=== PATIENT | female | born 1980 ===

== ENCOUNTER 2017-05-11 17:21 | Emergency (ER) | payer MEDICAID ==
[2017-05-11 18:08] VITALS: RESP 18
[2017-05-11 18:11] VITALS: BMI 37.0
[2017-05-11] MEDS ORDERED: Sodium Chloride 0.9% 1,000 ML IV STA (18:30)
[2017-05-11 19:22] LABS: URINE BILIRUBIN NEGATIVE (NEGATIVE); URINE BLOOD LARGE (NEGATIVE); URINE GLUCOSE (UA) NEGATIVE (NEGATIVE); URINE LEUKOCYTE ESTERASE NEGATIVE Leu/uL (NEGATIVE); URINE PROTEIN TRACE mg/dL (<30 mg/dL); URINE UROBILINOGEN 0.2 E.U./dL (<1 E.U./dL)
[2017-05-11 19:23] LABS: URINE APPEARANCE CLOUDY (CLEAR); URINE COLOR YELLOW (YELLOW)
[2017-05-11 19:35] LABS: URINE RBC TNTC /hpf (0-2)
[2017-05-11 19:36] LABS: BASO # 0.01 K/mm3 (0.0-2.0); BASO % 0.1 % (0.0-3.0); EOS # 0.1 (0.0-0.7); EOS % 1.2 % (1.5-5.0); GRAN # 5.14 (1.4-6.5); GRAN % 61.6 % (50.0-68.0); HEMOGLOBIN 9.5 g/dL (12.0-16.0); LYMPH # 2.6 (1.2-3.4); LYMPH % 31.5 % (22.0-35.0); MEAN CELL VOLUME 76.8 fl (80.0-105.0); MEAN CORPUSCULAR HEMOGLOBIN 24.7 pg (25.0-35.0); MEAN CORPUSCULAR HGB CONC 32.2 g/dl (31.0-37.0); MEAN PLATELET VOLUME 9.9 fl (7.0-11.0); MONO # 0.5 (0.1-0.6); MONO % 5.6 % (1.0-6.0); RBC 3.84 10^6/uL (3.5-6.1); RED CELL DISTRIBUTION WIDTH 14.6 % (11.5-14.5); WHITE BLOOD COUNT 8.4 10^3/ul (4.5-11.0)
[2017-05-11 19:36] LABS: URINE BACTERIA TRACE (NEG); URINE EPITHELIAL CELLS 0 - 2 /hpf (0-5); URINE WBC 0 - 2 /hpf (0-6)
[2017-05-11 19:39] LABS: INR 1.01 (0.93-1.08); PARTIAL THROMBOPLASTIN TIME 27.6 Seconds (25.1-36.5); PROTHROMBIN TIME 11.5 SECONDS (9.4-12.5)
[2017-05-11 19:42] LABS: ALB/GLOB RATIO 1.1 (1.1-1.8); ALBUMIN 3.7 g/dL (3.0-4.8); ALT/SGPT 26 U/L (7-56); AST/SGOT 25 U/L (14-36); BLOOD UREA NITROGEN 18 mg/dL (7-21); CALCIUM 9.2 mg/dL (8.4-10.5); GFR AFRICAN-AMERICAN > 60; GFR NON-AFRICAN AMERICAN > 60; LIPASE 200 U/L (23-300)
--- NOTE | 2017-05-11 19:50 | ED PDOC ---
Arrival/HPI <Anderson Lay P - Last Filed: 05/12/17 00:26> - General Historian: Patient - History of Present Illness Time/Duration: Other (3 days) Symptom Course: Unchanged Quality: Other Context: Home <Angelica Lucero PA-C - Last Filed: 05/12/17 14:35> - General Chief Complaint: GI Problem Time Seen by Provider: 05/11/17 17:57 - History of Present Illness Narrative History of Present Illness (Text): 05/11/17 19:47 A 36 year old female presents to the emergency department complaining of mid abdominal pain for 3 days. Patient notes associated nausea, vomiting and difficulty tolerating PO intake. Patient denies any fever, chills, diarrhea, chest pain, shortness of breath or any other complaints. Patient reports a history of gastric bypass and spontaneous vaginal delivery to twins, but no other surgeries. (Angelica Lucero PA-C) Past Medical History - Provider Review Nursing Documentation Reviewed: Yes - Infectious Disease Hx of Infectious Diseases: None - Psychiatric Hx Depression: Yes Hx Substance Use: No - Surgical History Hx Gastric Bypass Surgery: Yes - Anesthesia Hx Anesthesia: Yes Hx Anesthesia Reactions: No Hx Malignant Hyperthermia: No <Angelica Lucero PA-C - Last Filed: 05/12/17 14:35> Family/Social History - Physician Review Nursing Documentation Reviewed: Yes Family/Social History: No Known Family HX Smoking Status: Never Smoked Hx Alcohol Use: No Hx Substance Use: No <Angelica Lucero PA-C - Last Filed: 05/12/17 14:35> Allergies/Home Meds <Anderson Lay P - Last Filed: 05/12/17 00:26> <Angelica Lucero PA-C - Last Filed: 05/12/17 14:35> Allergies/Adverse Reactions: Allergies No Known Allergies Allergy (Verified 05/11/17 18:11) Review of Systems - Physician Review All systems were reviewed & negative as marked: Yes - Review of Systems Constitutional: absent: Fevers, Night Sweats Respiratory: absent: SOB Cardiovascular: absent: Chest Pain Gastrointestinal: Abdominal Pain, Nausea, Vomiting, Food Intolerance. absent: Diarrhea <Angelica Lucero PA-C - Last Filed: 05/12/17 14:35> Physical Exam Vital Signs Reviewed: Yes Temperature: Afebrile Blood Pressure: Normal Pulse: Regular Respiratory Rate: Normal Appearance: Positive for: Well-Appearing, Non-Toxic, Uncomfortable Pain Distress: Moderate Mental Status: Positive for: Alert and Oriented X 3 - Systems Exam Head: Present: Atraumatic, Normocephalic Pupils: Present: PERRL Extroacular Muscles: Present: EOMI Conjunctiva: Present: Normal Mouth: Present: Moist Mucous Membranes Neck: Present: Normal Range of Motion Respiratory/Chest: Present: Clear to Auscultation, Good Air Exchange. No: Respiratory Distress, Accessory Muscle Use Cardiovascular: Present: Regular Rate and Rhythm, Normal S1, S2. No: Murmurs Abdomen: Present: Tenderness (Mid abdominal tenderness to palpation), Normal Bowel Sounds. No: Distention, Peritoneal Signs, Rebound, Guarding, Other ( Leach's sign) Back: Present: Normal Inspection Upper Extremity: Present: Normal Inspection. No: Cyanosis, Edema Lower Extremity: Present: Normal Inspection. No: Edema Neurological: Present: GCS=15, CN II-XII Intact, Speech Normal Skin: Present: Warm, Dry, Normal Color. No: Rashes Psychiatric: Present: Alert, Oriented x 3, Normal Insight, Normal Concentration <Angelica Lucero PA-C - Last Filed: 05/12/17 14:35> Vital Signs Temp Pulse Resp BP Pulse Ox 05/11/17 23:57 98.7 F 74 18 120/60 100 05/11/17 22:20 98.6 F 76 18 119/60 99 05/11/17 18:07 98.2 F 86 18 138/78 98 Medical Decision Making Re-evaluation Time: 00:29 Reassessment Condition: Re-examined, Improved - Lab Interpretations I have reviewed the lab results: Yes Interpretation: No clinic. lab abnormalty (mild anemia, patient noted pmh anemia ) <Anderson Lay - Last Filed: 05/12/17 00:26> - Lab Interpretations I have reviewed the lab results: Yes <Angelica Lucero PA-C - Last Filed: 05/12/17 14:35> ED Course and Treatment: 05/12/17 00:26 Patient was endorsed to me by MORAIMA Salazar. Pending CT scan. On reevaluation, patient feels better. Patient denies nausea or vomiting at this time, and abdominal pain has improved. Patient tolerates PO fluids in ED. Abdomen is soft, nt/nd. CT scan was unremarkable. Patient was recommended to f/u with pmd in 1-2 days. Patient was recommended to return to emergency if symptoms worsen. (Anderson Lay) 05/11/17 19:47 Impression: A 36 year old female with mid abdominal pain, nausea and vomiting Plan: -- Abdomen and pelvis CT -- Labs -- Urine culture and Urinalysis -- Pepcid, Zofran and IV fluids -- Reassess and disposition Progress Notes: 05/11/17 21:00 On re-evaluation, patient is laying comfortably in bed. Patient states her pain is under control. On repeat exam, abdomen is soft with mild mid abdominal tenderness. Labs were reviewed, patient noted to be anemic with a hemoglobin of 9.6. Results were discussed with the patient, who reports a history of chronic anemia with iron infusions every 5 months. Patient states her last infusion was approximately 1 year ago and her last blood transfusion was 3 years ago. She notes todays hemoglobin level is consistent with her usual anemia. Patient denies any dark or bloody stools. Case endorsed to MORAIMA Lay, pending CT results. (Nic ANDERSEN,Angelica Sow) - Lab Interpretations Microbiology Results: Microbiology Results 05/11/17 19:00 Urine Urine Culture - Preliminary Gram Positive Cocci Lab Results: 05/11/17 19:20 05/11/17 19:20 Lab Results 05/11/17 19:20: Sodium 139, Potassium 4.5, Chloride 106, Carbon Dioxide 24, Anion Gap 13, BUN 18, Creatinine 0.7, Est GFR ( Amer) > 60, Est GFR (Non- Af Amer) > 60, Random Glucose 93, Calcium 9.2, Total Bilirubin < 0.1 L, AST 25, ALT 26, Alkaline Phosphatase 91, Total Protein 7.0, Albumin 3.7, Globulin 3.4, Albumin/Globulin Ratio 1.1, Lipase 200 05/11/17 19:20: PT 11.5, INR 1.01, APTT 27.6 05/11/17 19:20: WBC 8.4, RBC 3.84, Hgb 9.5 L, Hct 29.5 L, MCV 76.8 L, MCH 24.7 L , MCHC 32.2, RDW 14.6 H, Plt Count 383, MPV 9.9, Gran % 61.6, Lymph % (Auto) 31.5, [place] % (Auto) 5.6, Eos % (Auto) 1.2 L, Baso % (Auto) 0.1, Gran # 5.14, Lymph # (Auto) 2.6, [place] # (Auto) 0.5, Eos # (Auto) 0.1, Baso # (Auto) 0.01 05/11/17 19:00: Urine Color Yellow, Urine Appearance Cloudy, Urine pH 6.0, Ur Specific [place] 1.020, Urine Protein Trace H, Urine Glucose (UA) Negative, Urine Ketones Negative, Urine Blood Large H, Urine Nitrate Negative, Urine Bilirubin Negative, Urine Urobilinogen 0.2, Ur Leukocyte Esterase Negative, Urine RBC Tntc, Urine WBC 0 - 2, Ur Epithelial Cells 0 - 2, Urine Bacteria Trace - RAD Interpretation Narrative RAD Interpretations (Text): 05/12/17 00:29 CT Scan ABD PELVIS PO IV CONTRAST Exam Date: 05/11/17 This imaging exam was performed at [facility] EXAM: CT Abdomen and Pelvis With Intravenous Contrast . FINDINGS: Limitations: Motion artifact - mild. Lung bases: Unremarkable. No mass. No consolidation. ABDOMEN: Liver: Unremarkable. No mass. Gallbladder and bile ducts: No calcified stones. No ductal dilation. Pancreas: No ductal dilation. No mass. Spleen: No splenomegaly. Adrenals: No mass. Kidneys and ureters: Too small to characterize lesion within LEFT kidney. No hydronephrosis. Stomach and bowel: Postsurgical changes of stomach. No definite mural thickening. Few minimally distended loops of small bowel, likely ileus. Appendix: Normal caliber. No inflammation. PELVIS: Bladder: Unremarkable. Reproductive: Tampon within vaginal vault. ABDOMEN and PELVIS: Intraperitoneal space: Trace free fluid within pelvis. No free air. Bones/joints: No acute fracture. Soft tissues: Few injection granulomas/fat necrosis within gluteal soft tissues. Vasculature: Retroaortic LEFT renal vein. No aneurysm. Lymph nodes: No pathologically enlarged lymph nodes. IMPRESSION: 1. No definite acute intraabdominal abnormality. 2. Incidental/non-acute findings are described above. (Anderson Lay) Radiology Orders: 05/11/17 18:30 ABD PELVIS PO & IV CONTRAST [CT] Stat - Medication Orders Current Medication Orders: Discontinued Medications Famotidine (Pepcid) 20 mg IVP STAT STA Stop: 05/11/17 18:31 Last Admin: 05/11/17 19:30 Dose: 20 mg IVP Administration Document 05/11/17 19:30 RG (Rec: 05/12/17 00:00 RG [id number]) Charges for Administration # of IVP Administrations 1 Sodium Chloride (Sodium Chloride 0.9%) 1,000 mls @ 1,000 mls/hr IV .Q1H STA Stop: 05/11/17 19:29 Last Admin: 05/11/17 19:31 Dose: 1,000 mls/hr eMAR Start Stop Document 05/11/17 19:31 RG (Rec: 05/12/17 00:01 RG [id number]) Intravenous Solution Start Date 05/12/17 Start Time 19:31 End Date 05/12/17 End time 20:31 Total Infusion Time 60 Ondansetron HCl (Zofran Inj) 4 mg IVP STAT STA Stop: 05/11/17 18:31 Last Admin: 05/11/17 19:32 Dose: 4 mg IVP Administration Document 05/11/17 19:32 RG (Rec: 05/12/17 00:02 RG [id number]) Charges for Administration # of IVP Administrations 1 <Anderson Lay - Last Filed: 05/12/17 00:26> - PA / ADMINISTRATIVE JUDGE / Resident Statement MD/DO has reviewed & agrees with the documentation as recorded. - Scribe Statement The provider has reviewed the documentation as recorded by the Scribe <Angelica Lucero PA-C - Last Filed: 05/12/17 14:35> - Scribe Statement Olga Valencia Provider Scribe Attestation: All medical record entries made by the Scribe were at my direction and personally dictated by me. I have reviewed the chart and agree that the record accurately reflects my personal performance of the history, physical exam, medical decision making, and the department course for this patient. I have also personally directed, reviewed, and agree with the discharge instructions and disposition. (Angelica Lucero PA-C) Disposition/Present on Arrival - Present on Arrival Any Indicators Present on Arrival: No History of DVT/PE: No History of Uncontrolled Diabetes: No Urinary Catheter: No History of Decub. Ulcer: No - Disposition Have Diagnosis and Disposition been Completed?: Yes Disposition Time: 00:33 Patient Plan: Discharge <Anderson Lay - Last Filed: 05/12/17 00:26> - Present on Arrival History of DVT/PE: No History of Uncontrolled Diabetes: No Urinary Catheter: No History of Decub. Ulcer: No History Surgical Site Infection Following: None <Angelica Lucero PA-C - Last Filed: 05/12/17 14:35> - Disposition Diagnosis: Nonspecific abdominal pain, Renal lesion, Nausea & vomiting Disposition: HOME/ ROUTINE Condition: IMPROVED Discharge Instructions (ExitCare): Acute Abdomen (Belly Pain), Adult (DC) Additional Instructions: Call private doctor for follow up visit in 1-2 days. Take medication as instructed. Return to emergency if symptoms worsen. Make sure to reviewed CT scan result with your doctor Prescriptions: Famotidine/Ca Carb/Mag Hydrox [Pepcid Complete Tablet Chew] 1 each PO DAILY #10 tab.chew Ondansetron ODT [Zofran ODT] 4 mg PO Q4H PRN #15 odt PRN Reason: Nausea/Vomiting Referrals: Marisol Sanchez DO [Primary Care Provider] - Follow up with primary Forms: [facility] (Burmese), WORK NOTE
[2017-05-11] MEDS ORDERED: Iohexol 350 MG/100 ML VIAL ONE (20:03)
[2017-05-11] MEDS ORDERED: Iohexol 240 (50 ml) ONE (20:06)
[2017-05-11 23:57] VITALS: BP 120/60; PULSE 74; TEMP 98.7; O2SAT 100
--- NOTE | 2017-05-12 00:07 | CT ---
EXAM: CT Abdomen and Pelvis With Intravenous Contrast CLINICAL HISTORY: 36 years old, female; Pain; Abdominal pain; Generalized; Prior surgery; Surgery type: Gastric bypass (5years ago); Additional info: Mid abd pain, S/P gastric bypass surgery 5 yrs ago TECHNIQUE: Axial computed tomography images of the abdomen and pelvis with intravenous contrast. All CT scans at this facility use one or more dose reduction techniques, viz.: automated exposure control; ma/kV adjustment per patient size (including targeted exams where dose is matched to indication; i.e. head); or iterative reconstruction technique. Coronal and sagittal reformatted images were created and reviewed. CONTRAST: 94 mL of OMNI 350 administered intravenously. COMPARISON: No relevant prior studies available. FINDINGS: Limitations: Motion artifact - mild. Lung bases: Unremarkable. No mass. No consolidation. ABDOMEN: Liver: Unremarkable. No mass. Gallbladder and bile ducts: No calcified stones. No ductal dilation. Pancreas: No ductal dilation. No mass. Spleen: No splenomegaly. Adrenals: No mass. Kidneys and ureters: Too small to characterize lesion within LEFT kidney. No hydronephrosis. Stomach and bowel: Postsurgical changes of stomach. No definite mural thickening. Few minimally distended loops of small bowel, likely ileus. Appendix: Normal caliber. No inflammation. PELVIS: Bladder: Unremarkable. Reproductive: Tampon within vaginal vault. ABDOMEN and PELVIS: Intraperitoneal space: Trace free fluid within pelvis. No free air. Bones/joints: No acute fracture. Soft tissues: Few injection granulomas/fat necrosis within gluteal soft tissues. Vasculature: Retroaortic LEFT renal vein. No aneurysm. Lymph nodes: No pathologically enlarged lymph nodes. IMPRESSION: 1. No definite acute intraabdominal abnormality. 2. Incidental/non-acute findings are described above.
== END 2017-05-12 00:38 | disposition home or self-care (01) ==
LOC: ED 17:21
DX: R10.84 Generalized abdominal pain (principal); R11.2 Nausea with vomiting, unspecified; N28.9 Disorder of kidney and ureter, unspecified
CPT/HCPCS: 74177; 80053; 81001; 83690; 85025; 85610; 85730; 87086; 87181; 96361; 96374; 96375; 99285; J2405; J7040; Q9966; Q9967